=== PATIENT | female | born 1950 | race Caucasian/White ===

== ENCOUNTER 2017-01-23 06:45 | Emergency (ER) | payer MEDICARE, OTHER ==
[2017-01-23] MEDS ORDERED: ONDANSETRON HCL INJ/PF 4 MG/2 ML SDV IV ONE (07:14)
--- NOTE | 2017-01-23 07:27 | ER Document Report ---
ED Seizure - General Stated Complaint: POSSIBLE SEIZURE Mode of Arrival: Medic Information source: Patient Notes: Patient spouse states that around 5 or 6 this morning patient started to have a clinching of upper extremities and rhythmic shaking for a few minutes. Patient then made a gagging sound, was drooling. Spouse states that patient had seizure -like activity that lasted only for a few minutes and then she was making snoring sounds. Patient returned back to normal after about 10 minutes total. Patient complains of nausea and has vomited one time. Patient reports feeling fuzzy in the head. Patient without any previous history of seizures. Patient denies any recent head injury or illness. Spouse states that he didn't want his to get up out of the bed after this occurred. Patient had been asking to go to the bathroom and then wet the bed. Patient was not incontinent during seizure-like activity. TRAVEL OUTSIDE OF THE [place] IN LAST 30 DAYS: No - HPI Patient complains to provider of: First seizure Quality of pain: Achy Continued on arrival to ED: No Can details of seizure be obtained/verified: Yes Episode witnessed (by whom): Yes - spouse Preceding symptoms/context: denies: Recent illness/fever, Changed meds or dosage History of: denies: Brain tumor or mets Character of seizure: Partial loss/conscious Post-ictal symptoms: Headache Injuries: Bit tongue Associated Symptoms: Loss consciousness Past Medical History - General Information source: Patient, Relative - Social History Smoking Status: Never Smoker Smoking Education Provided: No Frequency of alcohol use: None Drug Abuse: None Occupation: retired Lives with: Spouse/Significant other Family History: Reviewed & Not Pertinent Endocrine Medical History: Reports: Hx Hypothyroidism Past Surgical History: Reports: Hx Dilation and Curettage Review of Systems - Review of Systems Constitutional: No symptoms reported. denies: Fever, Recent illness EENT: Other - Bit tongue Cardiovascular: No symptoms reported. denies: Chest pain, Dizziness Respiratory: No symptoms reported. denies: Cough, Short of breath Gastrointestinal: Nausea, Vomiting. denies: Abdominal pain, Diarrhea Genitourinary: No symptoms reported Female Genitourinary: No symptoms reported Musculoskeletal: No symptoms reported. denies: Back pain, Muscle pain Skin: No symptoms reported. denies: Rash Hematologic/Lymphatic: No symptoms reported Neurological/Psychological: Seizure Physical Exam - Vital signs Vitals: Resp 19 01/23/17 06:52 - General General appearance: Appears well, Alert In distress: None - HEENT Head: Normocephalic, Atraumatic Eyes: Normal Conjunctiva: Normal Extraocular movements intact: Yes Eyelashes: Normal Pupils: PERRL Ears: Normal External canal: Normal Tympanic membrane: Normal. No: Hemotympanum Nasal: Normal Mouth/Lips: Other - bite florez to tongue Mucous membranes: Normal Pharynx: Normal. No: Erythema, Tonsillar hypertrophy Neck: Normal, Supple. No: Lymphadenopathy - Respiratory Respiratory status: No respiratory distress Chest status: Nontender Breath sounds: Normal. No: Rales, Rhonchi, Stridor, Wheezing Chest palpation: Normal - Cardiovascular Rhythm: Regular Heart sounds: S1 appreciated, S2 appreciated Murmur: No - Abdominal Inspection: Normal Distension: No distension Bowel sounds: Normal Tenderness: Nontender Organomegaly: No organomegaly - Back Back: Normal, Nontender. No: CVA tenderness, Vertebra tenderness - Extremities General upper extremity: Normal inspection, Nontender, Normal strength General lower extremity: Normal inspection, Nontender, Normal strength - Neurological Neuro grossly intact: Yes Cognition: Normal [place] Coma Scale Eye Opening: Spontaneous [place] Coma Scale Verbal: Oriented Sundeep Coma Scale Motor: Obeys Commands Sundeep Coma Scale Total: 15 Speech: Normal Cranial nerves: Normal. 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 Patient denies any headache pain, but reports that she feels funny in her head. 01/23/17 10:[address] Méndez regarding patient presentation, diagnostics and exam findings. Does not feel the patient warrants an LP at this time. Does not recommend any additional diagnostic testing. Recommends discharge with outpatient follow-up with primary doctor as well as neurology. No prescription antiepileptic medications advised Discussed planning care with patient and her spouse. Discussed worsening signs or symptoms that patient should return [facility]. Patient advised that she should not drive any vehicle until cleared to do so by primary doctor or neurologist. - Vital Signs Vital signs: Temp Pulse Resp BP Pulse Ox 97.7 F 20 139/73 H 97 01/23/17 07:05 01/23/17 10:01 01/23/17 10:01 01/23/17 10:01 - Laboratory Result Diagrams: 01/23/17 07:01 01/23/17 07:01 Laboratory results interpreted by me: 01/23/17 01/23/17 01/23/17 07:01 07:01 07:31 RDW 14.1 H Glucose 127 H POC Glucose 111 H Creatine Kinase 137 H Urine Ketones Urine Urobilinogen 01/23/17 09:45 RDW Glucose POC Glucose Creatine Kinase Urine Ketones TRACE H Urine Urobilinogen 2.0 H Labs- Entire Visit 01/23/17 01/23/17 01/23/17 07:01 07:01 07:01 WBC 4.6 RBC 5.26 Hgb 14.7 Hct 42.5 MCV 81 MCH 27.9 MCHC 34.6 RDW 14.1 H Plt Count 194 Seg Neutrophils % 52.5 Lymphocytes % 37.6 Monocytes % 6.0 Eosinophils % 3.3 Basophils % 0.6 Absolute Neutrophils 2.4 Absolute Lymphocytes 1.7 Absolute Monocytes 0.3 Absolute Eosinophils 0.2 Absolute Basophils 0.0 PT 13.6 INR 1.01 APTT 27.2 Sodium 144.7 Potassium 3.8 Chloride 104 Carbon Dioxide 27 Anion Gap 14 BUN 8 Creatinine 0.71 Est GFR ( Amer) > 60 Est GFR (Non-Af Amer) > 60 Glucose 127 H POC Glucose Calcium 9.8 Magnesium 1.9 Total Bilirubin 0.9 Direct Bilirubin 0.1 Indirect Bilirubin Not Reportable Neonat Total Bilirubin Not Reportable AST 25 ALT 40 Alkaline Phosphatase 82 Creatine Kinase 137 H CK-MB (CK-2) Troponin I Total Protein 6.5 Albumin 4.2 Urine Color Urine Appearance Urine pH Ur Specific Cropsey Urine Protein Urine Glucose (UA) Urine Ketones Urine Blood Urine Nitrite Urine Bilirubin Urine Urobilinogen Ur Leukocyte Esterase Urine WBC (Auto) Urine RBC (Auto) U Hyaline Cast (Auto) Squamous Epi Cells Auto Urine Mucus (Auto) Urine Ascorbic Acid 01/23/17 01/23/17 01/23/17 07:01 07:31 09:45 WBC RBC Hgb Hct MCV MCH MCHC RDW Plt Count Seg Neutrophils % Lymphocytes % Monocytes % Eosinophils % Basophils % Absolute Neutrophils Absolute Lymphocytes Absolute Monocytes Absolute Eosinophils Absolute Basophils PT INR APTT Sodium Potassium Chloride Carbon Dioxide Anion Gap BUN Creatinine Est GFR ( Amer) Est GFR (Non-Af Amer) Glucose POC Glucose 111 H Calcium Magnesium Total Bilirubin Direct Bilirubin Indirect Bilirubin Neonat Total Bilirubin AST ALT Alkaline Phosphatase Creatine Kinase CK-MB (CK-2) 1.71 Troponin I < 0.012 Total Protein Albumin Urine Color YELLOW Urine Appearance CLEAR Urine pH 6.0 Ur Specific Cropsey 1.010 Urine Protein NEGATIVE Urine Glucose (UA) NEGATIVE Urine Ketones TRACE H Urine Blood NEGATIVE Urine Nitrite NEGATIVE Urine Bilirubin NEGATIVE Urine Urobilinogen 2.0 H Ur Leukocyte Esterase NEGATIVE Urine WBC (Auto) 1 Urine RBC (Auto) 0 U Hyaline Cast (Auto) 1 Squamous Epi Cells Auto 2 Urine Mucus (Auto) RARE Urine Ascorbic Acid NEGATIVE - Diagnostic Test Radiology reviewed: Reports reviewed - EKG Interpretation by Me EKG shows normal: Sinus rhythm Discharge - Discharge Clinical Impression: Seizure Condition: Stable Disposition: HOME, SELF-CARE Instructions: New Seizure ([facility]) Additional Instructions: Return immediately for any new or worsening symptoms, or call 911 for any emergent concerning symptoms Followup with your primary care provider, call Wednesday to make a followup appointment Follow up with a neurologist for further evaluation, call Wednesday morning for an appointment Referrals: WICHO JOINER MD [Primary Care Provider] - 01/25/17 TETE HARVEY MD [ACTIVE STAFF] - 01/25/17
[2017-01-23 07:44] LABS: HEMATOCRIT 42.5 % (36.0-47.0); HEMOGLOBIN 14.7 g/dL (12.0-15.5); RED BLOOD COUNT 5.26 10^6/uL (3.72-5.28); WHITE BLOOD COUNT 4.6 10^3/uL (4.0-10.5)
[2017-01-23 07:45] LABS: ABSOLUTE EOSINOPHILS # (AUTO) 0.2 10^3/uL (0.0-0.6); ABSOLUTE LYMPHOCYTES (AUTO) 1.7 10^3/uL (0.5-4.7); ABSOLUTE MONOCYTES (AUTO) 0.3 10^3/uL (0.1-1.4); ABSOLUTE NEUT (AUTO) 2.4 10^3/uL (1.7-8.2); BASOPHILS % (AUTO) 0.6 % (0-2); EOSINOPHILS % (AUTO) 3.3 % (0-6); HGB HCT DIFFERENCE 1.6; LYMPHOCYTES % (AUTO) 37.6 % (13-45); MEAN CORPUSCULAR HEMOGLOBIN 27.9 pg (27.0-33.4); MEAN CORPUSCULAR HGB CONC 34.6 g/dL (32.0-36.0); MEAN CORPUSCULAR VOLUME 81 fl (80-97); RED CELL DISTRIBUTION WIDTH 14.1 % (11.5-14.0); SEGMENTED NEUTROPHILS % (AUTO) 52.5 % (42-78)
[2017-01-23 07:49] LABS: ALANINE AMINOTRANSFERASE 40 U/L (9-52); ALBUMIN 4.2 g/dL (3.5-5.0); ALKALINE PHOSPHATASE 82 U/L (38-126); ANION GAP 14 (5-19); ASPARTATE AMINO TRANSFERASE 25 U/L (14-36); BILIRUBIN,DIRECT 0.1 mg/dL (0.0-0.4); BILIRUBIN,TOTAL 0.9 mg/dL (0.2-1.3); BLOOD UREA NITROGEN 8 mg/dL (7-20); CALCIUM 9.8 mg/dL (8.4-10.2); CARBON DIOXIDE 27 mmol/L (22-30); CHLORIDE 104 mmol/L (98-107); CREATINE KINASE 137 U/L (30-135); CREATININE RESULT 0.71 mg/dL (0.52-1.25); GLUCOSE 127 mg/dL (75-110); MAGNESIUM 1.9 mg/dL (1.6-2.3); POTASSIUM 3.8 mmol/L (3.6-5.0); SODIUM 144.7 mmol/L (137-145); TOTAL PROTEIN 6.5 g/dL (6.3-8.2)
[2017-01-23 07:54] LABS: PROTHROMBIN TIME 13.6 SEC (11.4-15.4)
[2017-01-23 07:55] LABS: PARTIAL THROMBOPLASTIN TIME 27.2 SEC (23.5-35.8)
[2017-01-23 08:01] LABS: CREATINE KINASE MB 1.71 ng/mL (<4.55)
[2017-01-23 08:02] LABS: TROPONIN I < 0.012 ng/mL
[2017-01-23] MEDS ORDERED: NORMAL SALINE 1000 ML 1,000 ML IV ONE (08:20)
[2017-01-23 10:05] LABS: APPEARANCE,URINE CLEAR; BILIRUBIN,URINE NEGATIVE (NEGATIVE); GLUCOSE, URINE NEGATIVE (NEGATIVE); KETONES,URINE TRACE mg/dL (NEGATIVE); LEUKOCYTE ESTERASE,URINE NEGATIVE (NEGATIVE); NITRITE,URINE NEGATIVE (NEGATIVE); PROTEIN,URINE NEGATIVE (NEGATIVE)
[2017-01-23 10:39] VITALS: BP 139/73
--- NOTE | 2017-01-23 12:37 | EKG REPORT ---
SEVERITY:- ABNORMAL ECG - SINUS RHYTHM CONSIDER ANTEROSEPTAL INFARCT : Confirmed by: Jamie Almanza 23-Jan-2017 12:35:49
== END 2017-01-23 10:44 | disposition home or self-care (01) ==
LOC: ER 06:45
DX: R56.9 Unspecified convulsions (principal); R11.2 Nausea with vomiting, unspecified; R32 Unspecified urinary incontinence; R51 Headache
CPT/HCPCS: 93005; 99285; 96361; 96374; 36415; 82553; 82962; 82550; 83735; 85025; 85610; 85730; 80053; 81001; 84484; 70450; 93010; J2405; J7030

== ENCOUNTER 2017-05-16 05:16 | Emergency (ER) | payer MEDICARE, OTHER ==
--- NOTE | 2017-05-16 05:57 | ER Document Report ---
ED Medical Screen (RME) - General Chief Complaint: Probable Seizure Stated Complaint: POSSIBLE SEIZURE Time Seen by Provider: 05/16/17 05:54 Mode of Arrival: Medic Information source: Relative - Notes: states that patient had her first seizure on January 23 of this year; on March 16 and then she had 2 seizures today. He states she was put on Keppra but the patient did not take it because she did not think she needed it. She is also on Synthroid which she has been taken. He states she had 2 seizures this morning 1 at 330 in the second at 5 AM. Patient was brought in postictal by EMS. TRAVEL OUTSIDE OF THE [place] IN LAST 30 DAYS: No - HPI Onset: This morning - Related Data Allergies/Adverse Reactions: No Known Drug Allergies Allergy (Verified 05/16/17 05:39) Past Medical History - Social History Chew tobacco use (# tins/day): No Frequency of alcohol use: None Drug Abuse: None Endocrine Medical History: Reports: Hx Hypothyroidism Past Surgical History: Reports: Hx Dilation and Curettage Physical Exam - Vital signs Vitals: Temp Resp Pulse Ox 97.8 F 25 H 91 L 05/16/17 05:24 05/16/17 05:24 05/16/17 05:24 Course - Vital Signs Vital signs: Temp Pulse Resp BP Pulse Ox 97.8 F 22 H 147/77 H 91 L 05/16/17 05:24 05/16/17 05:25 05/16/17 05:25 05/16/17 05:24 - Laboratory Result Diagrams: 05/16/17 05:26 05/16/17 05:26
[2017-05-16 06:02] LABS: ALANINE AMINOTRANSFERASE 33 U/L (9-52); ALBUMIN 3.9 g/dL (3.5-5.0); ALKALINE PHOSPHATASE 84 U/L (38-126); ANION GAP 10 (5-19); ASPARTATE AMINO TRANSFERASE 21 U/L (14-36); BILIRUBIN,DIRECT 0.2 mg/dL (0.0-0.4); BILIRUBIN,TOTAL 0.5 mg/dL (0.2-1.3); BLOOD UREA NITROGEN 14 mg/dL (7-20); CALCIUM 9.1 mg/dL (8.4-10.2); CARBON DIOXIDE 27 mmol/L (22-30); CHLORIDE 105 mmol/L (98-107); GLUCOSE 122 mg/dL (75-110); MAGNESIUM 1.9 mg/dL (1.6-2.3); POTASSIUM 4.3 mmol/L (3.6-5.0); SODIUM 141.6 mmol/L (137-145); TOTAL PROTEIN 6.7 g/dL (6.3-8.2)
[2017-05-16 06:03] LABS: ALCOHOL < 10 mg/dL (NONE DETECTED)
[2017-05-16 06:11] LABS: ABSOLUTE EOSINOPHILS # (AUTO) 0.1 10^3/uL (0.0-0.6); ABSOLUTE LYMPHOCYTES (AUTO) 1.3 10^3/uL (0.5-4.7); ABSOLUTE MONOCYTES (AUTO) 0.4 10^3/uL (0.1-1.4); ABSOLUTE NEUT (AUTO) 6.5 10^3/uL (1.7-8.2); BASOPHILS % (AUTO) 0.5 % (0-2); EOSINOPHILS % (AUTO) 0.8 % (0-6); HEMATOCRIT 40.8 % (36.0-47.0); HEMOGLOBIN 13.8 g/dL (12.0-15.5); HGB HCT DIFFERENCE 0.6; LYMPHOCYTES % (AUTO) 15.7 % (13-45); MEAN CORPUSCULAR HEMOGLOBIN 28.2 pg (27.0-33.4); MEAN CORPUSCULAR HGB CONC 33.8 g/dL (32.0-36.0); MEAN CORPUSCULAR VOLUME 84 fl (80-97); MONOCYTES % (AUTO) 4.4 % (3-13); RED BLOOD COUNT 4.89 10^6/uL (3.72-5.28); SEGMENTED NEUTROPHILS % (AUTO) 78.6 % (42-78); WHITE BLOOD COUNT 8.2 10^3/uL (4.0-10.5)
[2017-05-16] MEDS ORDERED: LEVETIRACETAM 1000 MG/NACL-ISO 100 ML IV ONE (06:17)
--- NOTE | 2017-05-16 06:23 | ER Document Report ---
ED Seizure - General Mode of Arrival: Medic Information source: Relative - spouse - HPI Patient complains to provider of: History of seizures Current seizure medications: Keppra - but not taking Injuries: Bit tongue <MARIAM GREEN - Last Filed: 05/16/17 06:36> <DONTHANIA - Last Filed: 05/16/17 08:11> - General Chief Complaint: Probable Seizure Stated Complaint: POSSIBLE SEIZURE Time Seen by Provider: 05/16/17 06:08 Notes: Patient is a 66 year old female who presents to the ED via EMS post ictal after having 2 reported seizures this morning. Patients states that the first seizure happened at 0330 this morning and the 2nd happening approximately 1 hour later at 0430 which patients states is unusual for her. Patients states her first seizure was on January 23, 2017 and was seen in the ED here and had a second on March 16, 2017 and was seen at [facility] and was then started on Keppra at that time. Patient has since quit taking her keppra because it reportedly made her feel tired and she went 1 month and 22 days seizure free up until this morning. Patient denies a headache but patients states she was complaining of nausea just prior to her second seizure this morning. Patient also reportedly bit her tongue. (MARIAM GREEN) - Related Data Allergies/Adverse Reactions: No Known Drug Allergies Allergy (Verified 05/16/17 05:39) Past Medical History - General Information source: Relative - - Social History Smoking Status: Never Smoker Chew tobacco use (# tins/day): No Frequency of alcohol use: None Drug Abuse: None Family History: Reviewed & Not Pertinent Neurological Medical History: Reports: Hx Seizures Endocrine Medical History: Reports: Hx Hypothyroidism Past Surgical History: Reports: Hx Dilation and Curettage <MARIAM GEREN - Last Filed: 05/16/17 06:36> Review of Systems - Review of Systems Constitutional: No symptoms reported EENT: No symptoms reported Cardiovascular: No symptoms reported Respiratory: No symptoms reported Gastrointestinal: See HPI, Nausea Genitourinary: No symptoms reported Female Genitourinary: No symptoms reported Musculoskeletal: No symptoms reported Skin: No symptoms reported Hematologic/Lymphatic: No symptoms reported Neurological/Psychological: See HPI, Seizure <MARIAM GREEN - Last Filed: 05/16/17 06:36> Physical Exam - General General appearance: Alert In distress: None - HEENT Head: Normocephalic, Atraumatic Eyes: Normal Extraocular movements intact: Yes Pupils: PERRL Mouth/Lips: Other - right side of tongue hamburgered section in back 1x2cm - Respiratory Respiratory status: No respiratory distress Breath sounds: Normal - Cardiovascular Rhythm: Regular Heart sounds: Normal auscultation Murmur: No - Abdominal Inspection: Normal Distension: No distension Tenderness: Nontender - Back Back: Normal - Extremities General upper extremity: Normal inspection, Normal ROM General lower extremity: Normal inspection, Normal ROM - Neurological Neuro grossly intact: Yes Cognition: Normal Orientation: AAOx4 [place] Coma Scale Eye Opening: Spontaneous Sundeep Coma Scale Verbal: Oriented [place] Coma Scale Motor: Obeys Commands [place] Coma Scale Total: 15 Speech: Normal - Psychological Associated symptoms: Normal affect, Normal mood - Skin Skin Temperature: Warm Skin Moisture: Dry Skin Color: Normal <MARIAM GREEN - Last Filed: 05/16/17 06:36> Course - Laboratory Result Diagrams: 05/16/17 05:26 05/16/17 05:26 <MARIAM GREEN - Last Filed: 05/16/17 06:36> - Laboratory Result Diagrams: 05/16/17 05:26 05/16/17 05:26 <THANIA OCHOA - Last Filed: 05/16/17 08:11> - Re-evaluation Re-evalutation: 05/16/17 06:36 Discussed with patient suturing tongue vs letting it heal, patient would prefer to let it heal. (MARIAM GREEN) - Vital Signs Vital signs: Temp Pulse Resp BP Pulse Ox 97.8 F 22 H 134/62 H 98 05/16/17 05:24 05/16/17 07:02 05/16/17 07:00 05/16/17 07:02 - Laboratory Laboratory results interpreted by me: 05/16/17 05/16/17 05:26 05:26 Seg Neutrophils % 78.6 H Glucose 122 H Discharge <MARIAM GREEN - Last Filed: 05/16/17 06:36> <THANIA OCHOA - Last Filed: 05/16/17 08:11> - Discharge Clinical Impression: Seizure Tongue laceration Qualifiers: Encounter type: initial encounter Qualified Code(s): S01.512A - Laceration without foreign body of oral cavity, initial encounter Condition: Stable Disposition: HOME, SELF-CARE Additional Instructions: Seizure, Known Epileptic: You have had a seizure. Seizures may "break through" in an epileptic due to stress of infection or injury, a change in blood chemistry, or drug and alcohol use. Another common cause is failure to take medication as prescribed. Your doctor has evaluated your situation for the likely cause of this seizure. It is important that you follow his advice concerning any medication changes and follow-up care. Further testing of anti-seizure medication levels in your blood may be necessary. If you have a retail delivery driver's license, it's important that you DO NOT DRIVE until given permission by your physician. This seizure must be reported to the retail delivery driver 's license bureau. Call the doctor or return if seizures recur, or if new or unusual symptoms arise -- such as severe headache, confusion, excessive sleepiness, local weakness or numbness, neck stiffness, or fever. I personally performed the services described in the documentation, reviewed and edited the documentation which was dictated to the scribe in my presence, and it accurately records my words and actions. TAKE THE MEDICATIONS PRESCRIBED. RINSE YOUR MOUTH REGULARLY. FOLLOW UP WITH YOUR DOCTOR THIS WEEK FOR RECHECK OF YOUR TONGUE INJURY. FOLLOW UP WITH YOUR NEUROLOGIST. RETURN TO THE EMERGENCY ROOM IF ANY NEW OR WORSENING SYMPTOMS. Prescriptions: Amoxicillin Trihydrate [Amoxil 500 mg Capsule] 500 mg PO TID #15 cap Levetiracetam [Keppra 500 mg Tablet] 500 mg PO Q12 #60 tablet Scribe Attestation: 05/16/17 08:11 I personally performed the services described in the documentation, reviewed and edited the documentation which was dictated to the scribe in my presence, and it accurately records my words and actions. (THANIA OCHOA) Scribe Documentation - Scribe Written by Margarita:: margarita Turner, 05/16/2017, 0636 acting as scribe for :: Don <MARIAM GREEN - Last Filed: 05/16/17 06:36>
[2017-05-16] MEDS ORDERED: AMOXICILLIN TRIHYDRATE 500 MG CAPSULE PO ONE (06:57)
[2017-05-16 08:30] VITALS: BP 136/71
--- NOTE | 2017-05-16 13:49 | EKG REPORT ---
SEVERITY:- ABNORMAL ECG - SINUS RHYTHM PROBABLE LEFT ATRIAL ABNORMALITY CONSIDER ANTEROSEPTAL INFARCT : Confirmed by: Katerina Monteiro MD 16-May-2017 13:48:37
== END 2017-05-16 08:30 | disposition home or self-care (01) ==
LOC: ER 05:16
DX: S01.512A Laceration without foreign body of oral cavity, initial encounter (principal); X58.XXXA Exposure to other specified factors, initial encounter; R11.0 Nausea
CPT/HCPCS: 93005; 99284; 96365; 36415; 80307; 83735; 85025; 80053; 93010; J1953

== ENCOUNTER 2017-11-13 06:35 | Emergency (ER) | payer MEDICARE, OTHER ==
--- NOTE | 2017-11-13 07:19 | ER Document Report ---
ED General - General Chief Complaint: Seizure Stated Complaint: POSSIBLE SEIZURE Time Seen by Provider: 11/13/17 06:59 Information source: Patient, Relative - spouse TRAVEL OUTSIDE OF THE [place] IN LAST 30 DAYS: No - HPI Patient complains to provider of: seizure Onset: Just prior to arrival Onset/Duration: Sudden Quality of pain: No pain, Other Associated symptoms: None Similar symptoms previously: Yes - on fycompa. Appr. 7 sz since 02/08 Recently seen / treated by doctor: Yes Notes: History is Team through discussion with patient as well as her . Patient started with seizures in January 2017 and she has had approximately 7. She was on Keppra at first but has been changed to fight, but. Patient and do not know the reason for the change in medication.Patient has had a few specialty consults including ENT, tests for obstructive sleep apnea, neurology. states that she is due to go to [place] for full workup.As per EMS patient did receive diazepam 20 mg per rectum. 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 Denies: Hx Peritoneal Dialysis Malignancy Medical History: Reports: None GI Medical History: Reports: None Musculoskeltal Medical History: Reports None Skin Medical History: Reports None Psychiatric Medical History: Reports: None Traumatic Medical History: Reports: None Infectious Medical History: Reports: None Past Surgical History: Reports: Hx Dilation and Curettage - Immunizations History of Influenza Vaccine for 07/2017 - 12/2017 Season: No Review of Systems - Review of Systems Constitutional: No symptoms reported EENT: No symptoms reported Cardiovascular: No symptoms reported Respiratory: No symptoms reported Gastrointestinal: No symptoms reported Genitourinary: No symptoms reported Female Genitourinary: No symptoms reported Musculoskeletal: Muscle pain - All over, following seizure Skin: No symptoms reported Hematologic/Lymphatic: No symptoms reported Neurological/Psychological: No symptoms reported Physical Exam - Vital signs Vitals: Temp Pulse Resp BP Pulse Ox 97.5 F 82 16 130/59 H 96 11/13/17 06:48 11/13/17 06:48 11/13/17 06:48 11/13/17 06:48 11/13/17 06:48 - Notes Notes: PHYSICAL EXAMINATION: GENERAL: Well-appearing, well-nourished and in no acute distress. HEAD: Atraumatic, normocephalic. EYES: Pupils equal round and reactive to light, extraocular movements intact, conjunctiva are normal. ENT: Nares patent, oropharynx clear without exudates. Moist mucous membranes. NECK: Normal range of motion, supple without lymphadenopathy LUNGS: Breath sounds clear to auscultation bilaterally and equal. No wheezes rales or rhonchi. HEART: Regular rate and rhythm without murmurs ABDOMEN: Soft, nontender, nondistended abdomen. No guarding, no rebound. No masses appreciated. Female : deferred Musculoskeletal: Normal range of motion, no pitting or edema. No cyanosis. NEUROLOGICAL: Cranial nerves grossly intact. Normal speech. Normal sensory, motor exams. PSYCH: Normal mood, normal affect. SKIN: Warm, Dry, normal turgor, no rashes or lesions noted. Course - Re-evaluation Re-evalutation: 11/13/17 09:51 Pt. alert and oriented. Asking to use the bathroom. VSS. Call placed to neurologist Dr. Juárez. 11/13/17 10:55 Patient did fine ambulating to the bathroom. Upon more discussion with her and her she did get scoped at ENT and they said that she does have patent nasal airway although she has a deviated septum on one side.They are going to [place] January 11 for a consult regarding further sleep studies.Patient is supposed to be on CPAP nightly however she states "I am a difficult patient and I do not feel that the seizures are related To my sleep issues". I did just that the patient wear the CPAP and so she can be seen January 11.Patient is in stable condition vital signs are stable she was discharged homeIn stable condition. She is to call Dr. Harvey at Wednesday morning for follow-up.I did reach out to him via the cleaning and washing equipment operator however he has not returned my call as of yet. 11/13/17 10:59 - Vital Signs Vital signs: Temp Pulse Resp BP Pulse Ox 97.5 F 82 16 130/59 H 96 11/13/17 06:48 11/13/17 06:48 11/13/17 06:48 11/13/17 06:48 11/13/17 06:48 - Laboratory Result Diagrams: 11/13/17 07:23 11/13/17 08:57 Laboratory results interpreted by me: 11/13/17 08:30 Urine Blood SMALL H urine neg except 1 RBC Discharge - Discharge Clinical Impression: Seizure Disposition: HOME, SELF-CARE Instructions: Seizure, Known Epileptic ([facility]) Referrals: TETE HARVEY MD [ACTIVE STAFF] - Follow up in 3-5 days (Please call Wednesday morning for follow-up appointment.Return to emergency department if you have any concerns.Please wear a CPAP at night as we discussed.)
[2017-11-13 07:36] LABS: ABSOLUTE EOSINOPHILS # (AUTO) 0.2 10^3/uL (0.0-0.6); ABSOLUTE LYMPHOCYTES (AUTO) 1.2 10^3/uL (0.5-4.7); ABSOLUTE MONOCYTES (AUTO) 0.4 10^3/uL (0.1-1.4); ABSOLUTE NEUT (AUTO) 4.7 10^3/uL (1.7-8.2); BASOPHILS % (AUTO) 0.7 % (0-2); EOSINOPHILS % (AUTO) 2.4 % (0-6); HEMATOCRIT 41.8 % (36.0-47.0); MEAN CORPUSCULAR HGB CONC 33.6 g/dL (32.0-36.0); MEAN CORPUSCULAR VOLUME 83 fl (80-97); PLATELET COUNT 213 10^3/uL (150-450); RED BLOOD COUNT 5.02 10^6/uL (3.72-5.28); RED CELL DISTRIBUTION WIDTH 13.8 % (11.5-14.0); SEGMENTED NEUTROPHILS % (AUTO) 72.9 % (42-78); TOTAL CELLS COUNTED % (AUTO) 100 %; WHITE BLOOD COUNT 6.4 10^3/uL (4.0-10.5)
[2017-11-13] MEDS ORDERED: NORMAL SALINE 1000 ML 1,000 ML IV ONE (08:53)
[2017-11-13 09:26] LABS: ALANINE AMINOTRANSFERASE 35 U/L (9-52); ALKALINE PHOSPHATASE 79 U/L (38-126); ANION GAP 6 (5-19); ASPARTATE AMINO TRANSFERASE 20 U/L (14-36); BILIRUBIN,DIRECT 0.1 mg/dL (0.0-0.4); BILIRUBIN,TOTAL 0.4 mg/dL (0.2-1.3); BLOOD UREA NITROGEN 17 mg/dL (7-20); CALCIUM 9.5 mg/dL (8.4-10.2); CARBON DIOXIDE 30 mmol/L (22-30); CHLORIDE 105 mmol/L (98-107); GLUCOSE 100 mg/dL (75-110); POTASSIUM 4.5 mmol/L (3.6-5.0); SODIUM 140.7 mmol/L (137-145); TOTAL PROTEIN 6.4 g/dL (6.3-8.2)
[2017-11-13 09:37] LABS: APPEARANCE,URINE CLEAR; BILIRUBIN,URINE NEGATIVE (NEGATIVE); COLOR,URINE YELLOW; GLUCOSE, URINE NEGATIVE (NEGATIVE); KETONES,URINE NEGATIVE (NEGATIVE); LEUKOCYTE ESTERASE,URINE NEGATIVE (NEGATIVE); NITRITE,URINE NEGATIVE (NEGATIVE); PROTEIN,URINE NEGATIVE (NEGATIVE); URINE SPECIFIC GRAVITY 1.017; UROBILINOGEN,URINE NEGATIVE mg/dL (<2.0)
[2017-11-13 11:30] VITALS: BP 144/71
== END 2017-11-13 11:32 | disposition home or self-care (01) ==
LOC: ER 06:35
DX: R56.9 Unspecified convulsions (principal); Z79.899 Other long term (current) drug therapy
CPT/HCPCS: 99284; 96360; 36415; 84443; 85025; 80053; 81001; J7030

== ENCOUNTER 2018-04-12 06:12 | Emergency (ER) | payer MEDICARE, OTHER ==
--- NOTE | 2018-04-12 06:22 | ER Document Report ---
ED Seizure - General Stated Complaint: POSSIBLE SEIZURE Time Seen by Provider: 04/12/18 06:20 Notes: 67-year-old female with history of seizures and sleep apnea who reportedly had a seizure this morning. Rolled out of bed. Denies any neck pain or headache. states that seizure only lasted for approximately 1 minute. On seizure medications. Also has history of sleep apnea and does not like wearing her CPAP machine. states that he will occasionally wake up and check her pulse ox and her oxygen levels will be in the low 80s. Patient has mild pain to the right lateral tongue after seizure. States that she has a seizure approximately once every 3 months. Denies any major symptoms at this time. states that this is the normal pattern for her and is not particularly more postictal than usual. - HPI Patient complains to provider of: History of seizures Number of episodes: 1 Duration: 1 min Quality of pain: No pain Severity: Mild Pain Level: 0 Continued on arrival to ED: No Episode witnessed (by whom): Yes Current seizure medications: Other - Fycompa History of: denies: Brain tumor or mets, CVA, Hydrocephalus, Migraines, TBI, V/ P shunt, Other Character of seizure: Partial loss/conscious, Generalized shaking Post-ictal symptoms: Confusion, Speech difficulty Injuries: None Associated Symptoms: None - Related Data Allergies/Adverse Reactions: No Known Drug Allergies Allergy (Verified 05/16/17 05:39) Past Medical History - General Information source: Patient, [facility] Records - Social History Smoking Status: Never Smoker Frequency of alcohol use: None Drug Abuse: None Lives with: Spouse/Significant other Family History: Reviewed & Not Pertinent Neurological Medical History: Reports: Hx Seizures Endocrine Medical History: Reports: Hx Hypothyroidism Renal/ Medical History: Denies: Hx Peritoneal Dialysis Past Surgical History: Reports: Hx Dilation and Curettage Review of Systems - Review of Systems Constitutional: denies: Fever, Malaise, Weakness EENT: denies: Eye pain, Tearing, Double vision, Nose pain, Throat pain, Difficulty swallowing, Mouth pain, Mouth swelling Cardiovascular: denies: Chest pain, Palpitations, Heart racing, Dyspnea, Syncope , Dizziness Respiratory: denies: Cough, Hurts to breathe, Short of breath, Wheezing Gastrointestinal: denies: Abdominal pain, Diarrhea, Nausea, Vomiting Genitourinary: denies: Burning, Dysuria, Discharge Musculoskeletal: denies: Back pain, Joint pain, Joint swelling, Muscle pain Skin: denies: Change in color, Dryness, Lesions, Lumps, Rash Hematologic/Lymphatic: denies: Anemia, Blood clots, Easy bleeding, Easy bruising Neurological/Psychological: Seizure. denies: Confusion, Dementia, Depression, Weakness, Numbness Physical Exam - Vital signs Vitals: Temp Pulse Resp BP Pulse Ox 98.1 F 66 16 145/78 H 98 04/12/18 06:15 04/12/18 06:15 04/12/18 06:15 04/12/18 06:15 04/12/18 06:15 Interpretation: Normal - General General appearance: Appears well, Alert - HEENT Head: Normocephalic, Atraumatic Eyes: Normal Pupils: PERRL Mouth/Lips: Other - Small bite lalo to the right lateral aspect of the tongue. Pharynx: Normal Neck: Normal, Other - Full range of motion. No midline tenderness. Patient is alert. No distracting injury. Nexus negative at this time. - Respiratory Respiratory status: No respiratory distress Chest status: Nontender Breath sounds: Normal Chest palpation: Normal - Cardiovascular Rhythm: Regular Heart sounds: Normal auscultation Murmur: No - Abdominal Inspection: Normal Distension: No distension Bowel sounds: Normal Tenderness: Nontender Organomegaly: No organomegaly - Back Back: Normal, Nontender - Extremities General upper extremity: Normal inspection, Nontender, Normal color, Normal ROM , Normal temperature General lower extremity: Normal inspection, Nontender, Normal color, Normal ROM , Normal temperature, Normal weight bearing. No: Yossi's sign - Neurological Neuro grossly intact: Yes Cognition: Normal, Other - Patient does not appear to be postictal at this time. Orientation: AAOx4 Sundeep Coma Scale Eye Opening: Spontaneous Sundeep Coma Scale Verbal: Oriented Sundeep Coma Scale Motor: Obeys Commands Sundeep Coma Scale Total: 15 Speech: Normal Motor strength normal: LUE, RUE, LLE, RLE Additional motor exam normals: Equal healthcare management. No: Pronator drift, Weakness, Hemiplegia Sensory: Normal - Psychological Associated symptoms: Normal affect, Normal mood - Skin Skin Temperature: Warm Skin Moisture: Dry Skin Color: Normal Course - Re-evaluation Re-evalutation: 04/12/18 06:43 Patient with history of seizures. Last seizure 3 months ago. On seizure medications. Last less than 1 minute. No significant injuries. Basic workup at this time. Will reassess. With regards to patient's sleep apnea, patient is followed by [employer]. Has a CPAP machine. is concerned about her oxygen levels dropping. I have explained to him that this is something that does happen with sleep apnea which is why she has a CPAP machine and she should be encouraged to wear it. If she does not want to wear that she is going to get hypoxic at night. 04/12/18 08:07 Patient is completely alert and with it at this time. Labs are unremarkable. Patient wants to go home. No signs of trauma. Discussed adding back the Keppra along with the Fycompa. There are no significant interactions. Encourage follow-up with her regular doctors. Encourage finding a neurologist that she trusts. I have also recommended that she get back on her CPAP machine. Will DC at this time. - Vital Signs Vital signs: Temp Pulse Resp BP Pulse Ox 98.1 F 66 16 145/78 H 100 04/12/18 06:15 04/12/18 06:15 04/12/18 06:15 04/12/18 06:15 04/12/18 06:21 - Laboratory Result Diagrams: 04/12/18 06:28 04/12/18 06:28 Laboratory results interpreted by me: 04/12/18 04/12/18 06:28 06:28 MCH 26.9 L RDW 14.6 H Total Protein 6.1 L - EKG Interpretation by Me EKG shows normal: Sinus rhythm, [place], Intervals, QRS Complexes, ST-T Waves When compared to previous EKG there are: No significant change Discharge - Discharge Clinical Impression: Seizure disorder Condition: Good Disposition: HOME, SELF-CARE Instructions: Seizure, Known Epileptic (OM) Additional Instructions: At this time I encourage you to begin taking the Keppra again 500 mg twice a day as well as your other seizure medication,Fycompa. Continue to wear your CPAP machine at night. Please follow-up with your regular doctor. Please find a neurologist that you trust and are comfortable with managing your medications. If symptoms persist, you develop worsening seizures, pain or other concerns please return immediately.
[2018-04-12] MEDS ORDERED: LORAZEPAM 0.5 MG TABLET PO ONE (06:44)
[2018-04-12 07:14] LABS: ABSOLUTE EOSINOPHILS # (AUTO) 0.2 10^3/uL (0.0-0.6); ABSOLUTE LYMPHOCYTES (AUTO) 1.5 10^3/uL (0.5-4.7); ABSOLUTE MONOCYTES (AUTO) 0.3 10^3/uL (0.1-1.4); ABSOLUTE NEUT (AUTO) 3.5 10^3/uL (1.7-8.2); BASOPHILS % (AUTO) 0.7 % (0-2); HEMATOCRIT 39.9 % (36.0-47.0); HEMOGLOBIN 13.4 g/dL (12.0-15.5); LYMPHOCYTES % (AUTO) 26.6 % (13-45); MEAN CORPUSCULAR HEMOGLOBIN 26.9 pg (27.0-33.4); MEAN CORPUSCULAR HGB CONC 33.6 g/dL (32.0-36.0); MEAN CORPUSCULAR VOLUME 80 fl (80-97); MONOCYTES % (AUTO) 6.2 % (3-13); PLATELET COUNT 213 10^3/uL (150-450); RED BLOOD COUNT 4.98 10^6/uL (3.72-5.28); RED CELL DISTRIBUTION WIDTH 14.6 % (11.5-14.0); SEGMENTED NEUTROPHILS % (AUTO) 62.5 % (42-78); TOTAL CELLS COUNTED % (AUTO) 100 %; WHITE BLOOD COUNT 5.5 10^3/uL (4.0-10.5)
[2018-04-12 07:19] LABS: ALANINE AMINOTRANSFERASE 28 U/L (9-52); ALBUMIN 3.6 g/dL (3.5-5.0); ALKALINE PHOSPHATASE 67 U/L (38-126); ANION GAP 9 (5-19); ASPARTATE AMINO TRANSFERASE 22 U/L (14-36); BILIRUBIN,DIRECT 0.3 mg/dL (0.0-0.4); BILIRUBIN,TOTAL 0.5 mg/dL (0.2-1.3); BLOOD UREA NITROGEN 13 mg/dL (7-20); CALCIUM 9.1 mg/dL (8.4-10.2); CARBON DIOXIDE 28 mmol/L (22-30); CHLORIDE 106 mmol/L (98-107); GLUCOSE 105 mg/dL (75-110); POTASSIUM 4.2 mmol/L (3.6-5.0); SODIUM 143.4 mmol/L (137-145); TOTAL PROTEIN 6.1 g/dL (6.3-8.2)
[2018-04-12 08:22] VITALS: BP 143/68
--- NOTE | 2018-04-12 08:42 | EKG REPORT ---
SEVERITY:- ABNORMAL ECG - SINUS RHYTHM ABNRM R PROG, CONSIDER ASMI OR LEAD PLACEMENT : Confirmed by: Jamie Almanza 12-Apr-2018 08:41:51
== END 2018-04-12 08:35 | disposition home or self-care (01) ==
LOC: ER 06:12
DX: G40.909 Epilepsy, unspecified, not intractable, without status epilepticus (principal); E03.9 Hypothyroidism, unspecified
CPT/HCPCS: 93005; 99284; 36415; 85025; 80053; 93010; A9270

== ENCOUNTER 2018-06-24 00:11 | Emergency (ER) | payer MEDICARE, OTHER ==
--- NOTE | 2018-06-24 01:13 | ER Document Report ---
ED General - General Chief Complaint: Probable Seizure Stated Complaint: POSSIBLE SEIZURE Time Seen by Provider: 06/24/18 00:16 Notes: Patient is a 68-year-old female with past medical history of hypothyroidism who presents with a seizure-like episode just prior to arrival. The patient does not recall the history as she was not awake during these events. Per the the patient had an episode in which for several minutes she had stiffening of her upper and lower extremities and appeared to be groaning. EMS was contacted and patient was initially noted to be altered and combative but this resolved in route to the hospital. The patient has repeatedly had similar episodes in the past that have resulted in visits to the emergency department. The patient is also followed with neurology and had an MRI/MRA of her head, EEG , and sleep study all of which have been effectively unremarkable without clear diagnosis as to the source of these events. These events never happened during the day. The patient first had these events starting in January 2017. Nothing seemed to trigger them other than nighttime. They do resolve spontaneously. The patient currently denies any symptoms. She denies any focal weakness or numbness. TRAVEL OUTSIDE OF THE [place] IN LAST 30 DAYS: No - Related Data Allergies/Adverse Reactions: No Known Drug Allergies Allergy (Verified 05/16/17 05:39) Past Medical History - General Information source: Patient, Relative - Social History Smoking Status: Never Smoker Chew tobacco use (# tins/day): No Frequency of alcohol use: None Drug Abuse: None Lives with: Spouse/Significant other Family History: Reviewed & Not Pertinent Patient has suicidal ideation: No Patient has homicidal ideation: No - Past Medical History Cardiac Medical History: Reports: Hx Hypertension Neurological Medical History: Reports: Hx Seizures Endocrine Medical History: Reports: Hx Hypothyroidism Renal/ Medical History: Denies: Hx Peritoneal Dialysis Past Surgical History: Reports: Hx Dilation and Curettage Review of Systems - Review of Systems Notes: Constitutional: Negative for fever. HENT: Negative for sore throat. Eyes: Negative for visual changes. Cardiovascular: Negative for chest pain. Respiratory: Negative for shortness of breath. Gastrointestinal: Negative for abdominal pain, vomiting or diarrhea. Genitourinary: Negative for dysuria. Musculoskeletal: Negative for back pain. Skin: Negative for rash. Neurological: Negative for headaches, weakness or numbness. 10 point ROS negative except as marked above and in HPI. Physical Exam - Vital signs Vitals: Temp Resp 98.0 F 20 06/24/18 00:19 06/24/18 00:19 Interpretation: Normal Notes: PHYSICAL EXAMINATION: GENERAL: Well-appearing, well-nourished and in no acute distress. HEAD: Atraumatic, normocephalic. EYES: Pupils equal round and reactive to light, extraocular movements intact, sclera anicteric, conjunctiva are normal. ENT: nares patent, oropharynx clear without exudates. Moist mucous membranes. NECK: Normal range of motion, supple without lymphadenopathy LUNGS: Breath sounds clear to auscultation bilaterally and equal. No wheezes rales or rhonchi. HEART: Regular rate and rhythm without murmurs ABDOMEN: Soft, nontender, normoactive bowel sounds. No guarding, no rebound. No masses appreciated. EXTREMITIES: Normal range of motion, no pitting or edema. No cyanosis. NEUROLOGICAL: Face symmetric. Tongue protrudes midline. Extraocular motions intact. Pupils are 2 mm and equally reactive. Normal speech, normal gait. 5 out of 5 strength in both the distal and proximal upper and lower extremities bilaterally. Sensation is grossly intact throughout. Finger to nose testing normal. Pronator drift normal. PSYCH: Normal mood, normal affect. SKIN: Warm, Dry, normal turgor, no rashes or lesions noted. Course - Re-evaluation Re-evalutation: 06/24/18 01:11 Presentation of well-appearing patient after having a seizure like episode. Patient has been having these events are currently at night since January 2017, has had an extensive workup including MRI/MRA of the head, EEG, sleep studies none of which revealed a definitive epilepsy pattern. The patient was weaned off of her AEDs by her neurologist Dr. Croft who has not definitively diagnosed these as being seizures or epilepsy. An alternative consideration would be night terrors as these are only happening at night and started after the patient had multiple emotionally distressing events. The patient has returned to baseline without intervention. No focal neurologic deficits. No infectious symptoms, vital sign abnormalities, or evidence of trauma. No indication for laboratories or imaging based on reassuring evaluation and known history of similar events in the past. The patient will be discharged home with recommendations for close follow-up with primary care as well as their neurologist. Return precautions have been reviewed and patient has verbalized understanding. - Vital Signs Vital signs: Temp Pulse Resp BP Pulse Ox 98.2 F 19 137/70 H 100 06/24/18 01:31 06/24/18 01:01 06/24/18 01:01 06/24/18 01:01 Discharge - Discharge Clinical Impression: Observed seizure-like activity Condition: Good Disposition: HOME, SELF-CARE Additional Instructions: The exact cause of your symptoms and it is uncertain but may either be seizures or night terrors. Please follow-up closely with your primary care doctor and return to the emergency department immediately for any new or concerning symptoms. Referrals: WICHO JOINER MD [Primary Care Provider] - Follow up as needed
[2018-06-24 01:24] VITALS: BP 137/70
== END 2018-06-24 01:32 | disposition home or self-care (01) ==
LOC: ER 00:11
DX: R56.9 Unspecified convulsions (principal); E03.9 Hypothyroidism, unspecified; I10 Essential (primary) hypertension
CPT/HCPCS: 99283

== ENCOUNTER 2018-06-24 03:56 | Emergency (ER) | payer MEDICARE ==
[2018-06-24 05:01] LABS: ABSOLUTE LYMPHOCYTES (AUTO) 0.8 10^3/uL (0.5-4.7); ABSOLUTE MONOCYTES (AUTO) 0.3 10^3/uL (0.1-1.4); ABSOLUTE NEUT (AUTO) 6.8 10^3/uL (1.7-8.2); BASOPHILS % (AUTO) 0.4 % (0-2); EOSINOPHILS % (AUTO) 0.5 % (0-6); HEMOGLOBIN 13.4 g/dL (12.0-15.5); LYMPHOCYTES % (AUTO) 10.3 % (13-45); MEAN CORPUSCULAR HEMOGLOBIN 26.9 pg (27.0-33.4); MEAN CORPUSCULAR HGB CONC 33.5 g/dL (32.0-36.0); MEAN CORPUSCULAR VOLUME 81 fl (80-97); MONOCYTES % (AUTO) 3.8 % (3-13); PLATELET COUNT 254 10^3/uL (150-450); RED BLOOD COUNT 4.96 10^6/uL (3.72-5.28); RED CELL DISTRIBUTION WIDTH 14.9 % (11.5-14.0); TOTAL CELLS COUNTED % (AUTO) 100 %; WHITE BLOOD COUNT 8.1 10^3/uL (4.0-10.5)
--- NOTE | 2018-06-24 05:17 | ER Document Report ---
ED General <GEORGES RUBIN - Last Filed: 06/24/18 06:44> - General TRAVEL OUTSIDE OF THE [place] IN LAST 30 DAYS: No <BOB STEARNS - Last Filed: 06/24/18 22:04> - General Chief Complaint: Probable Seizure Stated Complaint: POSSIBLE SEIZURE Time Seen by Provider: 06/24/18 04:29 Notes: Patient is a 68-year-old female who is brought in by ambulance because of seizure. She was seen here earlier tonight. She had long discussion with the previous ER doctor about all her previous tests. I have reviewed his notes. Patient has a history of these recurrent episodes which are unclear whether not there is seizures or not. They only occur at night. The says that she currently becomes hypoxic. He does have a pulse oximeter. He says when she starts becoming hypoxic she will sometimes have episodes where she tenses up and starts to shake. The last time she had his episodes were back in February. Since then she has been started on antiseizure medications which she was recently weaned off of. She took her last seizure medication yesterday and was fully weaned off them at that time. The last seizure medication she was on was Fyconpa. History is a bit unclear as her seems to become some confusion and workup. She has had negative EEGs and MRI and MRA of her brain. EEGs that were performed were performed when she was not having any seizure-like episodes. She has had sleep studies which the patient and her initially reported as negative; however, the talks about how she was hypoxic during the sleep studies. This was confusing to me than I therefore asked the if they placed her on CPAP. The says they did recommend CPAP she does have CPAP at home but she refuses to wear it. Patient denies any recent fevers. No recent trauma. No recent infections. No severe headaches. Every time she gets these episodes she does wake up postictal and is nauseous and vomits. She is on thyroid medication as well as cluster medication. She is otherwise healthy. Paramedics told the nurses report that she was postictal when they arrived. She did bite her tongue. describes the episode that happened tonight prior to arrival as the patient for approximately 2-4 minutes was having some shaking and stiffening and then she started to gargle and her jaw was clenched. After this episode resolved she was confused for a period of 15 or so minutes. (BOB STEARNS) - Related Data Allergies/Adverse Reactions: No Known Drug Allergies Allergy (Verified 05/16/17 05:39) Past Medical History - Social History Smoking Status: Never Smoker Chew tobacco use (# tins/day): No Frequency of alcohol use: None Drug Abuse: None Family History: Reviewed & Not Pertinent Patient has suicidal ideation: No Patient has homicidal ideation: No - Past Medical History Cardiac Medical History: Reports: Hx Hypertension Neurological Medical History: Reports: Hx Seizures Endocrine Medical History: Reports: Hx Hypothyroidism Renal/ Medical History: Denies: Hx Peritoneal Dialysis Past Surgical History: Reports: Hx Dilation and Curettage <BOB STEARNS - Last Filed: 06/24/18 22:04> Review of Systems <GEORGES RUBIN - Last Filed: 06/24/18 06:44> <BOB STEARNS - Last Filed: 06/24/18 22:04> - Review of Systems Notes: My Normal Review Basic REVIEW OF SYSTEMS: CONSTITUTIONAL : Denies fever, chills, or sweats. Denies recent illness. EENT: Bit tongue. RESPIRATORY: Denies cough, cold, or chest congestion. Denies shortness of breath, difficulty breathing, or wheezing. GASTROINTESTINAL: Denies abdominal pain. Denies nausea, vomiting, or diarrhea. MUSCULOSKELETAL: Denies neck or back pain or joint pain or swelling. SKIN: Denies rash or skin lesions. NEUROLOGICAL: Possible seizure. Some altered mental status. ALL OTHER SYSTEMS REVIEWED AND NEGATIVE. (OBB STEARNS) Physical Exam <GEORGES RUBIN - Last Filed: 06/24/18 06:44> <BOB STEARNS - Last Filed: 06/24/18 22:04> - Vital signs Vitals: Pulse Ox 94 06/24/18 04:03 - Notes Notes: General Appearance: Well nourished, alert, cooperative, no acute distress, no obvious discomfort. Patient nauseous and occasionally vomiting during exam. During exam patient will fall asleep sometimes. She obviously still a bit postictal. She does fall asleep her oxygen saturation does dip down into the 80s. She seems to get as low as 84%. Vitals: reviewed, See vital signs table. Head: no swelling or tenderness to the head Eyes: PERRL, EOMI, Conjuctiva clear Mouth: No decreasd moisture. Small abrasion on tip of tongue from tongue biting. Throat: No tonsillar inflammation, No airway obstruction, Neck: Supple, no neck tenderness Lungs: No wheezing, No rales, No rhonci, No accessory muscle use, good air exchange bilaterally. Heart: Normal rate, Regular rythm, No murmur, no rub Abdomen: Normal BS, soft, No rigidity, No abdominal tenderness, No guarding, no rebound, no abdominal masses, no organomegaly Extremities: strength 5/5 in all extremities, good pulses in all extremities, no swelling or tenderness in the extremities, no edema. Skin: warm, dry, appropriate color, no rash Neuro: speech clear, oriented x 3, normal affect, responds appropriately to questions. Renal nerves II through XII are intact. Distal sensation intact. Patient moves all extremities without difficulty. (BOB STEARNS) Course - Laboratory Result Diagrams: 06/24/18 04:45 06/24/18 04:45 <GEORGES RUBIN - Last Filed: 06/24/18 06:44> - Laboratory Result Diagrams: 06/24/18 04:45 06/24/18 04:45 <BOB STEARNS - Last Filed: 06/24/18 22:04> - Re-evaluation Re-evalutation: 06/24/18 22:03 I suspect the patient's seizures are partially related to the fact that she is hypoxic at nighttime. That is why they wake her at nighttime. She is supposed to be wearing CPAP but the says she continues to refuse to do this. Patient's laboratory evaluation is unremarkable except for some hypothyroidism for which she is undergoing treatment with Synthroid for. I talked to at length informed him that the patient really must wear the CPAP or this will most likely continue to happen as she continues to have hypoxemia if she is not on oxygen at night or if she is not wearing her CPAP. I will place her back on Keppra she has been on this in the past. They denied her having bad reactions to Keppra in the past. Encouraged him to call their neurologist in the morning to make a close follow-up appointment. They are to return to ER if she has recurrent seizures or appears unwell. agrees with plan and patient will be discharged home. Dictation of this chart was performed using voice recognition software; therefore, there may be some unintended grammatical errors. (BOB STEARNS) - Vital Signs Vital signs: Temp Pulse Resp BP Pulse Ox 98.5 F 20 123/58 L 96 06/24/18 07:03 06/24/18 07:01 06/24/18 07:01 06/24/18 07:01 - Laboratory Laboratory results interpreted by me: 06/24/18 06/24/18 06/24/18 04:45 04:45 04:45 MCH 26.9 L RDW 14.9 H Seg Neutrophils % 85.0 H Lymphocytes % 10.3 L Glucose 120 H TSH 8.21 H Discharge <GEORGES RUBIN - Last Filed: 06/24/18 06:44> <BOB STEARNS - Last Filed: 06/24/18 22:04> - Discharge Clinical Impression: Seizure, Nocturnal hypoxemia Condition: Good Disposition: HOME, SELF-CARE Additional Instructions: You must use your CPAP at night. If you do not use your CPAP your oxygen will continue to drop and you will have recurrent seizures. Please start taking the Keppra as prescribed and call your neurologist this am to make a close follow up appointment. Please return to the ER if you have recurrent seizures or feel unwell. Prescriptions: Levetiracetam [Keppra 500 mg Tablet] 500 mg PO Q12 #30 tablet Referrals: WICHO JOINER MD [Primary Care Provider] - Follow up as needed
[2018-06-24 05:26] LABS: ANION GAP 12 (5-19); BLOOD UREA NITROGEN 12 mg/dL (7-20); CALCIUM 9.1 mg/dL (8.4-10.2); CARBON DIOXIDE 28 mmol/L (22-30); CHLORIDE 103 mmol/L (98-107); GLUCOSE 120 mg/dL (75-110); POTASSIUM 4.1 mmol/L (3.6-5.0)
[2018-06-24 06:12] LABS: FREE T4 (FREE THYROXINE) 1.05 ng/dL (0.78-2.19)
[2018-06-24 06:26] LABS: THYROID STIMULATING HORMONE 8.21 uIU/mL (0.47-4.68)
[2018-06-24 07:04] VITALS: BP 123/58
== END 2018-06-24 07:12 | disposition home or self-care (01) ==
LOC: ER 03:56
DX: R56.9 Unspecified convulsions (principal); R09.02 Hypoxemia; R41.0 Disorientation, unspecified; Z79.899 Other long term (current) drug therapy; I10 Essential (primary) hypertension
CPT/HCPCS: 36415; 80048; 83735; 84439; 84443; 85025; 99284

== ENCOUNTER 2018-09-06 00:38 | Emergency (ER) | payer MEDICARE, OTHER ==
[2018-09-06] MEDS ORDERED: NORMAL SALINE 1000 ML 500 ML IV ONE (01:16)
[2018-09-06] MEDS ORDERED: LEVETIRACETAM 500 MG/NACL-ISO 500 MG/100 ML RTUPB IV ONE (01:16)
--- NOTE | 2018-09-06 01:20 | ER Document Report ---
ED Seizure - General Chief Complaint: Seizure Stated Complaint: SEIZURE Time Seen by Provider: 09/06/18 00:50 Notes: Patient is a 68-year-old female with a history of epilepsy that comes to the emergency department for chief complaint of a seizure that happened tonight, witnessed it, he described it as less than 1 minute of a jerking stiffening movement with her eyes open and rolling back. He states that she was very tired afterwards, this lasted less than 30 minutes, patient is now back to baseline after coming by EMS. Patient takes Keppra 500 mg twice a day, see his local neurologist Dr. Croft. She has completed MRIs and EEGs. Patient denies any sick symptoms including fever, vomiting, abdominal pain, chest pain, she even denies headache at this time. She states that she was laid on a dose earlier within the past 24 hours, has been also states she thinks she has become dehydrated today. Only other reported past medical history is hypothyroidism. She denies alcohol. - Related Data Allergies/Adverse Reactions: No Known Drug Allergies Allergy (Verified 05/16/17 05:39) Past Medical History - General Information source: Patient, Relative - Social History Smoking Status: Never Smoker Frequency of alcohol use: None Drug Abuse: None Lives with: Family Family History: Reviewed & Not Pertinent Patient has suicidal ideation: No Patient has homicidal ideation: No - Past Medical History Cardiac Medical History: Reports: Hx Hypertension Neurological Medical History: Reports: Hx Seizures Endocrine Medical History: Reports: Hx Hypothyroidism Renal/ Medical History: Denies: Hx Peritoneal Dialysis Past Surgical History: Reports: Hx Dilation and Curettage Review of Systems - Review of Systems Constitutional: No symptoms reported, See HPI EENT: No symptoms reported Cardiovascular: No symptoms reported Respiratory: No symptoms reported Gastrointestinal: No symptoms reported Genitourinary: No symptoms reported Female Genitourinary: No symptoms reported Musculoskeletal: See HPI Skin: No symptoms reported Hematologic/Lymphatic: No symptoms reported Neurological/Psychological: See HPI Physical Exam - Vital signs Vitals: Resp 21 H 09/06/18 00:49 - Notes Notes: GENERAL: Alert, interacts well. No acute distress. HEAD: Normocephalic, atraumatic. EYES: Pupils equal, round, and reactive to light. Extraocular movements intact. ENT: Oral mucosa moist, tongue midline. There is evidence of a small bite over the left lateral aspect of the tongue. No current bleeding. Oropharynx unremarkable. Airway patent. Nares patent, no nasal septal hematoma, TM's intact. NECK: Full range of motion. Supple. Trachea midline. LUNGS: Clear to auscultation bilaterally, no wheezes, rales, or rhonchi. No respiratory distress. HEART: Regular rate and rhythm. No murmur ABDOMEN: Soft, non-tender. Non-distended. Bowel sounds present in all 4 quadrants. GENITOURINARY: Deferred EXTREMITIES: Moves all 4 extremities spontaneously. No edema, normal radial and dorsalis pedis pulses bilaterally. No cyanosis. BACK: no cervical, thoracic, lumbar midline tenderness. No saddle anesthesia, normal distal neurovascular exam. NEUROLOGICAL: Alert and oriented x3. Normal speech. [cranial nerves II through XII grossly intact]. PSYCH: Normal affect, normal mood. SKIN: Warm, dry, normal turgor. No rashes or lesions noted. Course - Re-evaluation Re-evalutation: Because of patient's reported weight doses and reported dehydration she was given IV fluids and Keppra. She is not tachycardic, her mucous membranes are dry. Chemistry is completely unremarkable, magnesium is normal, alcohol negative. Patient alert and oriented on initial evaluation and on reevaluation. No decompensation during her stay in the emergency department. Discussed results and event with patient and . I do believe patient had a seizure, she had tonic-clonic symptoms, she was postictal, and she bit her tongue. Patient has excellent neurology follow-up. Requesting to go home. Because of her short seizure, short postictal phase, normal mental status, lack of fever, unremarkable evaluation I have low suspicion of meningitis, intracranial hemorrhage, or other acute cause of seizure that is emergent. Discussed close follow-up, discussed return precautions in detail with patient and , they state satisfaction and agreement. - Vital Signs Vital signs: Temp Pulse Resp BP Pulse Ox 98.1 F 19 151/72 H 97 09/06/18 02:59 09/06/18 02:49 09/06/18 02:49 09/06/18 02:49 - Laboratory Result Diagrams: 09/06/18 01:15 Discharge - Discharge Clinical Impression: Seizure Condition: Stable Disposition: HOME, SELF-CARE Additional Instructions: Your symptoms tonight are consistent with a seizure. Take the Keppra as prescribed, follow closely with Dr. Croft for additional evaluation and management. Try to stay hydrated, get enough sleep, and avoid missing medication doses. Return for any concerning or worsening symptoms including repeated seizure activity, fevers, or any other concerning or worsening symptoms. Referrals: WICHO JOINER MD [Primary Care Provider] - Follow up as needed
[2018-09-06 01:31] LABS: ANION GAP 16 (5-19); BLOOD UREA NITROGEN 16 mg/dL (7-20); CALCIUM 9.5 mg/dL (8.4-10.2); CARBON DIOXIDE 26 mmol/L (22-30); CHLORIDE 102 mmol/L (98-107); GLUCOSE 100 mg/dL (75-110); POTASSIUM 4.5 mmol/L (3.6-5.0); SODIUM 143.9 mmol/L (137-145)
[2018-09-06 01:35] LABS: ALCOHOL < 10 mg/dL (NONE DETECTED)
[2018-09-06 03:00] VITALS: BP 151/72
== END 2018-09-06 03:05 | disposition home or self-care (01) ==
LOC: ER 00:38
DX: G40.909 Epilepsy, unspecified, not intractable, without status epilepticus (principal); S01.552A Open bite of oral cavity, initial encounter; W50.3XXA Accidental bite by another person, initial encounter; I10 Essential (primary) hypertension; E86.0 Dehydration
CPT/HCPCS: 99284; 96361; 96374; 36415; 80307; 83735; 80048; J7030; J1953

== ENCOUNTER 2018-09-06 06:46 | Emergency (ER) | payer MEDICARE ==
[2018-09-06] MEDS ORDERED: ONDANSETRON HCL INJ/PF 4 MG/2 ML SDV ONE (06:57)
--- NOTE | 2018-09-06 08:20 | RADIOLOGY REPORT (SQ) ---
EXAM DESCRIPTION: CT HEAD WITHOUT COMPLETED DATE/TIME: 09/06/2018 8:08 am REASON FOR STUDY: seizure COMPARISON: CT brain 01/23/2017 TECHNIQUE: Axial images acquired through the brain without intravenous contrast. Images reviewed wi th bone, brain and subdural windows. Additional sagittal and coronal reconstructions were generated. Images stored on PACS. All CT scanners at this facility use dose modulation, iterative reconstruction, and/or weight based d osing when appropriate to reduce radiation dose to as low as reasonably achievable (ALARA). [facility]: Dose Right [facility]: CareDose [facility]: Dose Right [facility]: Teradose 4D [facility]: OrangeHRM RADIATION DOSE: Fused CT Rad equipment meets quality standard of care and radiation dose reduction techniques were employed . CTDIvol: 53.2 mGy. DLP: 1017 mGy-cm. mGy. LIMITATIONS: None. FINDINGS: VENTRICLES: Normal size and contour. CEREBRUM: No masses. No hemorrhage. No midline shift. No evidence for acute infarction. Normal gra y/white matter differentiation. No areas of low density in the white matter. CEREBELLUM: No masses. No hemorrhage. No alteration of density. No evidence for acute infarction. EXTRAAXIAL SPACES: No fluid collections. No masses. ORBITS AND GLOBE: No intra- or extraconal masses. Normal contour of globe without masses. CALVARIUM: No fracture. PARANASAL SINUSES: No fluid or mucosal thickening. SOFT TISSUES: No mass or hematoma. OTHER: No other significant finding. IMPRESSION: NORMAL BRAIN CT WITHOUT CONTRAST. EVIDENCE OF ACUTE STROKE: NO. COMMENT: Quality ID # [id number]: Final reports with documentation of one or more dose reduction techniques (e.g., Automated exposure control, adjustment of the mA and/or kV according to patient size, use of iterative reconstruction technique) TECHNICAL DOCUMENTATION: JOB ID: [id number] [employer]- All Rights Reserved Reading location - IP/workstation name: [email or web address]
[2018-09-06 08:31] LABS: ABSOLUTE LYMPHOCYTES (AUTO) 0.8 10^3/uL (0.5-4.7); ABSOLUTE MONOCYTES (AUTO) 0.3 10^3/uL (0.1-1.4); ABSOLUTE NEUT (AUTO) 6.7 10^3/uL (1.7-8.2); BASOPHILS % (AUTO) 0.4 % (0-2); EOSINOPHILS % (AUTO) 0.3 % (0-6); HEMATOCRIT 38.7 % (36.0-47.0); HEMOGLOBIN 13.4 g/dL (12.0-15.5); MEAN CORPUSCULAR HEMOGLOBIN 27.5 pg (27.0-33.4); MEAN CORPUSCULAR HGB CONC 34.5 g/dL (32.0-36.0); MEAN CORPUSCULAR VOLUME 80 fl (80-97); PLATELET COUNT 243 10^3/uL (150-450); RED BLOOD COUNT 4.85 10^6/uL (3.72-5.28); RED CELL DISTRIBUTION WIDTH 15.4 % (11.5-14.0); SEGMENTED NEUTROPHILS % (AUTO) 85.3 % (42-78); TOTAL CELLS COUNTED % (AUTO) 100 %; WHITE BLOOD COUNT 7.9 10^3/uL (4.0-10.5)
[2018-09-06 09:05] LABS: APPEARANCE,URINE CLEAR; BILIRUBIN,URINE NEGATIVE (NEGATIVE); COLOR,URINE STRAW; GLUCOSE, URINE NEGATIVE (NEGATIVE); KETONES,URINE NEGATIVE (NEGATIVE); LEUKOCYTE ESTERASE,URINE NEGATIVE (NEGATIVE); NITRITE,URINE NEGATIVE (NEGATIVE); PROTEIN,URINE NEGATIVE (NEGATIVE); URINE SPECIFIC GRAVITY 1.014; UROBILINOGEN,URINE NEGATIVE mg/dL (<2.0)
[2018-09-06 09:28] LABS: URINE AMPHETAMINES SCREEN NEGATIVE; URINE BARBITURATES SCREEN NEGATIVE; URINE BENZODIAZEPINES SCREEN NEGATIVE; URINE COCAINE SCREEN NEGATIVE; URINE MARIJUANA (THC) SCREEN NEGATIVE; URINE METHADONE SCREEN NEGATIVE; URINE PHENCYCLIDINE SCREEN NEGATIVE
--- NOTE | 2018-09-06 10:02 | EKG REPORT ---
SEVERITY:- ABNORMAL ECG - SINUS RHYTHM CONSIDER ANTEROSEPTAL INFARCT : Confirmed by: Jamie Almanza 06-Sep-2018 10:00:18
[2018-09-06 10:18] LABS: ALANINE AMINOTRANSFERASE 32 U/L (9-52); ALBUMIN 3.7 g/dL (3.5-5.0); ALKALINE PHOSPHATASE 94 U/L (38-126); ANION GAP 10 (5-19); ASPARTATE AMINO TRANSFERASE 23 U/L (14-36); BILIRUBIN,DIRECT 0.2 mg/dL (0.0-0.4); BILIRUBIN,TOTAL 0.5 mg/dL (0.2-1.3); BLOOD UREA NITROGEN 13 mg/dL (7-20); CALCIUM 9.1 mg/dL (8.4-10.2); CARBON DIOXIDE 29 mmol/L (22-30); CHLORIDE 104 mmol/L (98-107); GLUCOSE 114 mg/dL (75-110); POTASSIUM 4.5 mmol/L (3.6-5.0); SODIUM 142.8 mmol/L (137-145); TOTAL PROTEIN 6.1 g/dL (6.3-8.2)
[2018-09-06 10:19] LABS: ALCOHOL < 10 mg/dL (NONE DETECTED)
[2018-09-06 11:00] LABS: VENOUS BLOOD BASE EXCESS 1.6 mmol/L; VENOUS BLOOD HCO3 28.6 mmol/L (20-32); VENOUS BLOOD PCO2 55.1 mmHg (35-63); VENOUS BLOOD PH 7.33 (7.30-7.42)
--- NOTE | 2018-09-06 11:49 | ER Document Report ---
ED General - General Chief Complaint: Seizure Stated Complaint: POSSIBLE SEIZURE Time Seen by Provider: 09/06/18 07:00 TRAVEL OUTSIDE OF THE [place] IN LAST 30 DAYS: No - HPI Patient complains to provider of: Seizure disorder Notes: Patient coming in for evaluation of a seizure disorder. [facility] Family at bedside states patient has change the timing of taking her Keppra possible etiology of the patient's breakthrough seizures at this time. Patient had a seizure lasting for me to approximate postictal for 5 minutes. There is no change in the characteristics of the patient's seizures according to the family member. Patient apparently also has been wearing CPAP due to some sleep apnea. Denies any changes to medications. Upon my evaluation patient looks to be tired however is able to answer questions appropriately. Patient was monitored in ER. - Related Data Allergies/Adverse Reactions: No Known Drug Allergies Allergy (Verified 05/16/17 05:39) Past Medical History - Social History Smoking Status: Never Smoker Family History: Reviewed & Not Pertinent Patient has suicidal ideation: No Patient has homicidal ideation: No - Past Medical History Cardiac Medical History: Reports: Hx Hypertension Neurological Medical History: Reports: Hx Seizures Endocrine Medical History: Reports: Hx Hypothyroidism Renal/ Medical History: Denies: Hx Peritoneal Dialysis Past Surgical History: Reports: Hx Dilation and Curettage Review of Systems - Review of Systems Constitutional: Other - Seizure EENT: No symptoms reported Cardiovascular: No symptoms reported Respiratory: No symptoms reported Gastrointestinal: No symptoms reported Genitourinary: No symptoms reported Female Genitourinary: No symptoms reported Musculoskeletal: No symptoms reported Skin: No symptoms reported Hematologic/Lymphatic: No symptoms reported Neurological/Psychological: No symptoms reported -: Yes All other systems reviewed and negative Physical Exam - Vital signs Vitals: Pulse Ox 98 09/06/18 07:25 Interpretation: Normal - General General appearance: Appears well, Alert - HEENT Head: Normocephalic, Atraumatic Eyes: Normal Pupils: PERRL - Respiratory Respiratory status: No respiratory distress Chest status: Nontender Breath sounds: Normal Chest palpation: Normal - Cardiovascular Rhythm: Regular Heart sounds: Normal auscultation Murmur: No - Abdominal Inspection: Normal Distension: No distension Bowel sounds: Normal Tenderness: Nontender Organomegaly: No organomegaly - Back Back: Normal, Nontender - Extremities General upper extremity: Normal inspection, Nontender, Normal color, Normal ROM , Normal temperature General lower extremity: Normal inspection, Nontender, Normal color, Normal ROM , Normal temperature, Normal weight bearing. No: Yossi's sign - Neurological Neuro grossly intact: Yes Cognition: Normal Orientation: AAOx4 [place] Coma Scale Eye Opening: Spontaneous [place] Coma Scale Verbal: Oriented [place] Coma Scale Motor: Obeys Commands Sun[place] Coma Scale Total: 15 Speech: Normal Motor strength normal: LUE, RUE, LLE, RLE Sensory: Normal Biceps - Reflex grade: 2 = Normal - Psychological Associated symptoms: Normal affect, Normal mood - Skin Skin Temperature: Warm Skin Moisture: Dry Skin Color: Normal Course - Re-evaluation Re-evalutation: 09/06/18 14:22 Patient coming in for possible breakthrough seizure. Patient was monitored in the ER for over 5 hours with no further seizure activity. Patient was given her home dose of Keppra. Patient laboratory studies not revealing critical pathology along with a head CT that was read as negative. Unclear etiology of the patient's acute seizures of for possible changing of her timing of her medications recommend increasing the patient's Keppra from 500 mg 1000 mg twice daily to follow-up of her neurologist. States understanding will be discharged home - Vital Signs Vital signs: Temp Pulse Resp BP Pulse Ox 97.5 F 75 22 H 119/57 L 99 09/06/18 12:00 09/06/18 12:00 09/06/18 12:00 09/06/18 12:00 09/06/18 12:00 - Laboratory Result Diagrams: 09/06/18 08:21 09/06/18 08:21 Laboratory results interpreted by me: 09/06/18 09/06/18 09/06/18 08:21 08:21 08:50 RDW 15.4 H Seg Neutrophils % 85.3 H Lymphocytes % 10.0 L Glucose 114 H Total Protein 6.1 L Urine Ascorbic Acid 20 H Discharge - Discharge Clinical Impression: Seizure Condition: Good Disposition: HOME, SELF-CARE Instructions: Seizure, Known Epileptic ([facility]) Additional Instructions: Your laboratory studies showed no signs of any critical pathology at this time. I will highly recommend to increase her Keppra dosing thousand milligrams twice a day until he follow-up with your neurologist and your family physician. Return to ER for any other concerns. Prescriptions: Levetiracetam [Keppra] 1,000 mg PO BID #20 tablet Referrals: WICHO JOINER MD [Primary Care Provider] - Follow up as needed
[2018-09-06 12:13] VITALS: BP 119/57
== END 2018-09-06 12:17 | disposition home or self-care (01) ==
LOC: ER 06:46
DX: G40.909 Epilepsy, unspecified, not intractable, without status epilepticus (principal); Z79.899 Other long term (current) drug therapy; I10 Essential (primary) hypertension; G47.30 Sleep apnea, unspecified; Z99.89 Dependence on other enabling machines and devices
CPT/HCPCS: 93005; 99284; 96374; 36415; 80177; 80307 ×2; 85025; 80053; 81001; 82803; 70450; 93010; J2405